=== PATIENT | male | born 1970 | race Two or more races ===

== ENCOUNTER 2022-12-01 09:59 | Inpatient (IN) | payer MEDICAID ==
[~2022-12-01] VITALS: Ht 175.3 cm; Wt 91.0 kg
[2022-12-01] MEDS ORDERED: IOHEXOL 300 MG/ML 100ML BOTTLE IJ ONE (10:25)
[2022-12-01] MEDS ORDERED: SODIUM CHLORIDE 0.9% 1,000 ML IV ONE ×2 (10:30)
[2022-12-01] MEDS ORDERED: cefTRIAXone 1GM/50ML D5W 50 ML IV ONE (10:30)
[2022-12-01] MEDS ORDERED: CLINDAMYCIN 600MG IV 50 ML IV ONE (10:30)
[2022-12-01 10:42] LABS: Basophils # (auto) 0.1 10 ^3/uL (0-0.2); Basophils % (auto) 1.1 % (0.0-2.0); Eosinophils # (auto) 0.1 10 ^3/uL (0-0.8); Eosinophils % (auto) 1.1 % (0.0-7.0); Hematocrit 45.8 % (41.0-53.0); Hemoglobin 15.5 g/dL (13.5-17.5); Lymphocytes # (auto) 2.8 10 ^3/uL (0.4-5.4); Lymphocytes % (auto) 35.1 % (10.0-50.0); Mean Corpuscular Hemoglobin 31.5 pg (28.0-32.0); Mean Corpuscular Hgb Conc. 33.8 g/dL (32.0-36.0); Mean Corpuscular Volume 93.2 fL (80.0-100.0); Monocytes # (auto) 0.5 10 ^3/uL (0-1.3); Monocytes % (auto) 6.8 % (0.0-12.0); Neutrophils # (auto) 4.5 10 ^3/uL (1.6-8.6); Neutrophils % (auto) 55.9 % (37.0-80.0); Nucleated Red Blood Cells % 0.1 %; Red Blood Cells 4.91 10^6/uL (4.5-5.90); Red Cell Distribution Width 13.5 % (11.8-14.3); White Blood Cell 8.1 10^3/uL (4.4-10.8)
[2022-12-01 10:53] LABS: INR 0.92 (0.9-1.15); Partial Thromboplastin Time 25.5 sec (24.6-33.4)
[2022-12-01 10:59] LABS: Calcium 8.9 mg/dL (8.5-10.1); Potassium 4.2 mmol/L (3.5-5.1)
[2022-12-01 11:03] LABS: BUN/Creatinine Ratio 10.9; Bilirubin, Total 0.5 mg/dL (0.2-1.0); Total Protein 7.4 g/dL (6.4-8.2)
[2022-12-01 13:49] LABS: Urine WBC None Seen /hpf (0 - 3)
[2022-12-01 14:07] LABS: Urine Bacteria NONE SEEN /hpf (None Seen); Urine Blood Negative /uL (Negative)
[2022-12-01] MEDS ORDERED: ACETAMINOPHEN 325 MG TAB PO PRN (14:30)
[2022-12-01] MEDS ORDERED: SODIUM CHLORIDE 0.9% 1,000 ML IV SCH (14:30)
[2022-12-01] MEDS ORDERED: VANCOMYCIN PER PHARMACY 0 MG IV SCH (14:45)
[2022-12-01] MEDS ORDERED: PANTOPRAZOLE 40 MG/10 ML VIAL INJ IV ONE ×2 (14:45→15:00)
[2022-12-01 14:57] LABS: Cholesterol 177 mg/dL (< 200); Triglycerides 89 mg/dL (< 150)
[2022-12-01 14:58] LABS: HDL Cholesterol 49 mg/dL (40-59); LDL Cholesterol 122 mg/dL (< 100)
[2022-12-01] MEDS ORDERED: [UNRECOGNIZED DRUG - CODE] (15:29)
[2022-12-01] MEDS ORDERED: LISI20TA28 PO (15:29)
[2022-12-01] MEDS ORDERED: CEPH500C PO (15:29)
[2022-12-01] MEDS ORDERED: VANCOMYCIN 1GM/250ML 250 ML IV ONE (15:30)
[2022-12-01] MEDS: SODIUM CHLORIDE 0.9% 1,000 ML IV SCH ×2 (15:53→21:26)
[2022-12-01 20:00] VITALS: BP 122/78
[2022-12-01] MEDS: ASCORBIC ACID 500 MG TAB PO SCH (21:25)
[2022-12-01] MEDS: CLINDAMYCIN 600MG IV 50 ML IV SCH (21:25)
[2022-12-01 22:00] VITALS: BP 133/88
[2022-12-01] MEDS: VANCOMYCIN 1GM/250ML 250 ML IV SCH (23:14)
[2022-12-02 05:00] VITALS: BP 126/86
[2022-12-02] MEDS: CLINDAMYCIN 600MG IV 50 ML IV SCH ×3 (05:17→21:39)
[2022-12-02 07:18] LABS: Basophils # (auto) 0.1 10 ^3/uL (0-0.2); Eosinophils # (auto) 0.2 10 ^3/uL (0-0.8); Eosinophils % (auto) 3.1 % (0.0-7.0); Hematocrit 44.5 % (41.0-53.0); Lymphocytes # (auto) 2.4 10 ^3/uL (0.4-5.4); Lymphocytes % (auto) 36.6 % (10.0-50.0); Mean Corpuscular Hemoglobin 31.2 pg (28.0-32.0); Mean Corpuscular Hgb Conc. 33.6 g/dL (32.0-36.0); Mean Corpuscular Volume 92.9 fL (80.0-100.0); Monocytes # (auto) 0.5 10 ^3/uL (0-1.3); Monocytes % (auto) 7.3 % (0.0-12.0); Neutrophils # (auto) 3.4 10 ^3/uL (1.6-8.6); Nucleated Red Blood Cells % 0.1 %; Red Blood Cells 4.79 10^6/uL (4.5-5.90); Red Cell Distribution Width 13.7 % (11.8-14.3); White Blood Cell 6.5 10^3/uL (4.4-10.8)
[2022-12-02 07:32] LABS: Calcium 8.5 mg/dL (8.5-10.1); Potassium 4.3 mmol/L (3.5-5.1)
[2022-12-02 07:37] LABS: Albumin 3.6 g/dL (3.4-5.0); BUN/Creatinine Ratio 8.8; Bilirubin, Total 1.2 mg/dL (0.2-1.0); Total Protein 6.6 g/dL (6.4-8.2)
[2022-12-02 08:00] VITALS: BP 123/89
[2022-12-02 09:00] VITALS: BP 123/89
[2022-12-02] MEDS: MULTIPLE VITAMIN TAB PO SCH (09:27)
[2022-12-02] MEDS: VANCOMYCIN 1GM/250ML 250 ML IV SCH ×3 (09:27→23:15)
[2022-12-02] MEDS: PANTOPRAZOLE 40 MG/10 ML VIAL INJ IV SCH (09:27)
[2022-12-02] MEDS: ZINC SULFATE 220mg CAP or TAB PO SCH (09:27)
[2022-12-02] MEDS: ASCORBIC ACID 500 MG TAB PO SCH ×2 (09:28→21:39)
[2022-12-02] MEDS: ENOXAPARIN SOD 40 MG/0.4 ML SYRINGE SC SCH (09:28)
[2022-12-02] MEDS: LISINOPRIL 20 MG TAB PO SCH (09:28)
[2022-12-02] MEDS ORDERED: PANTOPRAZOLE 40 MG/10 ML VIAL INJ IV SCH (10:00)
[2022-12-02 13:00] VITALS: BP 133/87
[2022-12-02] MEDS: SODIUM CHLORIDE 0.9% 1,000 ML IV SCH (15:02)
[2022-12-02 16:58] VITALS: BP 121/86
[2022-12-02 23:03] VITALS: BP 105/55
[2022-12-03 05:01] VITALS: BP 104/76
[2022-12-03] MEDS: CLINDAMYCIN 600MG IV 50 ML IV SCH (05:43)
[2022-12-03 06:45] LABS: Basophils # (auto) 0.1 10 ^3/uL (0-0.2); Basophils % (auto) 0.9 % (0.0-2.0); Eosinophils # (auto) 0.2 10 ^3/uL (0-0.8); Eosinophils % (auto) 2.5 % (0.0-7.0); Hematocrit 47.3 % (41.0-53.0); Lymphocytes % (auto) 33.8 % (10.0-50.0); Mean Corpuscular Hemoglobin 31.6 pg (28.0-32.0); Mean Corpuscular Hgb Conc. 33.9 g/dL (32.0-36.0); Monocytes # (auto) 0.7 10 ^3/uL (0-1.3); Monocytes % (auto) 7.4 % (0.0-12.0); Neutrophils # (auto) 4.9 10 ^3/uL (1.6-8.6); Neutrophils % (auto) 55.4 % (37.0-80.0); Nucleated Red Blood Cells % 0.2 %; Red Blood Cells 5.09 10^6/uL (4.5-5.90); Red Cell Distribution Width 13.2 % (11.8-14.3); White Blood Cell 8.9 10^3/uL (4.4-10.8)
[2022-12-03 06:55] LABS: BUN/Creatinine Ratio 12.7; Calcium 9.3 mg/dL (8.5-10.1)
[2022-12-03] MEDS: ENOXAPARIN SOD 40 MG/0.4 ML SYRINGE SC SCH (08:31)
[2022-12-03] MEDS: PANTOPRAZOLE 40 MG/10 ML VIAL INJ IV SCH (08:31)
[2022-12-03] MEDS: VANCOMYCIN 1GM/250ML 250 ML IV SCH (08:31)
[2022-12-03] MEDS: ASCORBIC ACID 500 MG TAB PO SCH ×2 (08:32→21:42)
[2022-12-03] MEDS: LISINOPRIL 20 MG TAB PO SCH (08:32)
[2022-12-03] MEDS: ZINC SULFATE 220mg CAP or TAB PO SCH (08:32)
[2022-12-03] MEDS: MULTIPLE VITAMIN TAB PO SCH (08:32)
[2022-12-03 08:53] VITALS: BP 126/86
[2022-12-03] MEDS ORDERED: PIPERACILLIN-TAZOB 3.375GM 100 ML IV ONE (09:30)
[2022-12-03 13:00] VITALS: BP 113/75
[2022-12-03 16:38] VITALS: BP 113/76
[2022-12-03] MEDS: PIPERACILLIN-TAZOB 3.375GM 100 ML IV SCH ×3 (16:56→23:48)
[2022-12-03] MEDS ORDERED: LACTULOSE 20Gm/30ML SOLN PO ONE (17:00)
[2022-12-03] MEDS ORDERED: DOCUSATE SOD 100 MG CAP PO ONE (17:00)
[2022-12-03] MEDS: DOCUSATE SOD 100 MG CAP PO SCH (21:42)
[2022-12-03 22:00] VITALS: BP 100/66
[2022-12-04 05:00] VITALS: BP 102/70
[2022-12-04] MEDS: PIPERACILLIN-TAZOB 3.375GM 100 ML IV SCH ×4 (05:26→23:46)
[2022-12-04 09:16] VITALS: BP 104/64
[2022-12-04] MEDS: PANTOPRAZOLE 40 MG/10 ML VIAL INJ IV SCH (09:18)
[2022-12-04] MEDS: LISINOPRIL 20 MG TAB PO SCH (09:18)
[2022-12-04] MEDS: DOCUSATE SOD 100 MG CAP PO SCH ×2 (09:18→22:00)
[2022-12-04] MEDS: MULTIPLE VITAMIN TAB PO SCH (09:18)
[2022-12-04] MEDS: ZINC SULFATE 220mg CAP or TAB PO SCH (09:18)
[2022-12-04] MEDS: ASCORBIC ACID 500 MG TAB PO SCH ×2 (09:18→21:29)
[2022-12-04 12:45] VITALS: BP 122/74
[2022-12-04 16:50] VITALS: BP 122/68
[2022-12-04] MEDS ORDERED: VANCOMYCIN 1GM/250ML 250 ML IV STA (20:11)
[2022-12-04 22:14] VITALS: BP 118/71
[2022-12-05 05:00] VITALS: BP 96/67
[2022-12-05] MEDS: PIPERACILLIN-TAZOB 3.375GM 100 ML IV SCH ×3 (05:30→18:00)
[2022-12-05 07:12] LABS: Basophils # (auto) 0.1 10 ^3/uL (0-0.2); Eosinophils # (auto) 0.2 10 ^3/uL (0-0.8); Eosinophils % (auto) 2.8 % (0.0-7.0); Hematocrit 46.6 % (41.0-53.0); Hemoglobin 15.9 g/dL (13.5-17.5); Lymphocytes # (auto) 2.4 10 ^3/uL (0.4-5.4); Lymphocytes % (auto) 29.8 % (10.0-50.0); Mean Corpuscular Hemoglobin 31.6 pg (28.0-32.0); Monocytes # (auto) 0.7 10 ^3/uL (0-1.3); Monocytes % (auto) 8.9 % (0.0-12.0); Neutrophils # (auto) 4.6 10 ^3/uL (1.6-8.6); Neutrophils % (auto) 57.5 % (37.0-80.0); Red Blood Cells 5.02 10^6/uL (4.5-5.90); Red Cell Distribution Width 13.5 % (11.8-14.3)
[2022-12-05 08:57] VITALS: BP 109/79
[2022-12-05] MEDS ORDERED: VANCOMYCIN PER PHARMACY 0 MG IV SCH (09:00)
[2022-12-05] MEDS: LISINOPRIL 20 MG TAB PO SCH (10:00)
[2022-12-05] MEDS: ASCORBIC ACID 500 MG TAB PO SCH ×2 (10:00→21:08)
[2022-12-05] MEDS: MULTIPLE VITAMIN TAB PO SCH (10:00)
[2022-12-05] MEDS ORDERED: VANCOMYCIN 1GM/250ML 250 ML IV SCH (10:00)
[2022-12-05] MEDS: DOCUSATE SOD 100 MG CAP PO SCH ×2 (10:00→21:08)
[2022-12-05] MEDS: PANTOPRAZOLE 40 MG/10 ML VIAL INJ IV SCH (10:33)
[2022-12-05] MEDS: ZINC SULFATE 220mg CAP or TAB PO SCH (10:34)
[2022-12-05 12:43] VITALS: BP 135/81
[2022-12-05 17:30] VITALS: BP 123/88
[2022-12-05 22:00] VITALS: BP 122/79
[2022-12-06] MEDS: PIPERACILLIN-TAZOB 3.375GM 100 ML IV SCH ×4 (00:15→18:00)
[2022-12-06 05:00] VITALS: BP 103/71
[2022-12-06 06:44] LABS: Potassium 4.4 mmol/L (3.5-5.1)
[2022-12-06 06:47] LABS: Basophils # (auto) 0.1 10 ^3/uL (0-0.2); Basophils % (auto) 0.6 % (0.0-2.0); Eosinophils # (auto) 0.2 10 ^3/uL (0-0.8); Eosinophils % (auto) 2.1 % (0.0-7.0); Hematocrit 48.4 % (41.0-53.0); Lymphocytes # (auto) 3.1 10 ^3/uL (0.4-5.4); Lymphocytes % (auto) 34.4 % (10.0-50.0); Mean Corpuscular Hgb Conc. 33.1 g/dL (32.0-36.0); Mean Corpuscular Volume 93.7 fL (80.0-100.0); Monocytes # (auto) 0.9 10 ^3/uL (0-1.3); Monocytes % (auto) 9.6 % (0.0-12.0); Neutrophils # (auto) 4.7 10 ^3/uL (1.6-8.6); Neutrophils % (auto) 53.3 % (37.0-80.0); Nucleated Red Blood Cells % 0.2 %; Red Blood Cells 5.16 10^6/uL (4.5-5.90); Red Cell Distribution Width 13.4 % (11.8-14.3); White Blood Cell 8.9 10^3/uL (4.4-10.8)
[2022-12-06 06:49] LABS: BUN/Creatinine Ratio 11.2
[2022-12-06 06:50] LABS: Calcium 9.1 mg/dL (8.5-10.1)
[2022-12-06] MEDS ORDERED: SUCCINYLCHOLINE CHLORIDE 20 MG/ML 10ML VIAL IV ONE (07:04)
[2022-12-06] MEDS ORDERED: ROCURONIUM 10MG/ML 10ML VIAL IV ONE (07:04)
[2022-12-06] MEDS ORDERED: ONDANSETRON HCL 4 MG/2 ML VIAL ONE (07:07)
[2022-12-06] MEDS ORDERED: fentaNYL CITRATE 100 MCG/2 ML VL ONE (07:07)
[2022-12-06] MEDS ORDERED: MIDAZOLAM HCL 2MG/2ML 2ml VIAL (1mg/ml) ONE (07:07)
[2022-12-06] MEDS ORDERED: SODIUM CHLORIDE LOCK 10 ML ONE (07:07)
[2022-12-06] MEDS ORDERED: PROPOFOL 10 MG/ML 20 ML IV ONE (07:07)
[2022-12-06] MEDS ORDERED: MORPHINE SULFATE INJ 2 MG/ml SYRG IV PRN (07:30)
[2022-12-06] MEDS ORDERED: HYDROmorphone HCL 2 MG/ML VL/or syr IV PRN ×2 (07:30)
[2022-12-06] MEDS ORDERED: METOCLOPRAMIDE HCL 5MG/ml INJ 2ml VIAL IV PRN (07:30)
[2022-12-06] MEDS ORDERED: LIDOCAINE W/ EPINEPHRINE 1% 20ML VIAL ONE (07:32)
[2022-12-06] MEDS ORDERED: LIDOCAINE 2% JELLY 11ml (GLYDO) ONE (07:32)
[2022-12-06] MEDS ORDERED: ceFAZolin 1GM VL ONE (07:45)
[2022-12-06 09:59] VITALS: BP 122/85
[2022-12-06] MEDS: DOCUSATE SOD 100 MG CAP PO SCH ×2 (10:00→22:00)
[2022-12-06] MEDS: ZINC SULFATE 220mg CAP or TAB PO SCH (10:04)
[2022-12-06] MEDS: PANTOPRAZOLE 40 MG/10 ML VIAL INJ IV SCH (10:04)
[2022-12-06] MEDS: MULTIPLE VITAMIN TAB PO SCH (10:04)
[2022-12-06] MEDS: ASCORBIC ACID 500 MG TAB PO SCH ×2 (10:04→22:00)
[2022-12-06] MEDS: LISINOPRIL 20 MG TAB PO SCH (10:05)
[2022-12-06 12:48] VITALS: BP 136/83
[2022-12-06 17:41] VITALS: BP 122/82
[2022-12-07 00:30] VITALS: BP 128/85
[2022-12-07 05:33] VITALS: BP 130/83
[2022-12-07] MEDS: PIPERACILLIN-TAZOB 3.375GM 100 ML IV SCH ×5 (06:00→23:57)
[2022-12-07 07:55] VITALS: BP 121/75
[2022-12-07] MEDS: ASCORBIC ACID 500 MG TAB PO SCH ×2 (09:40→22:47)
[2022-12-07] MEDS: DOCUSATE SOD 100 MG CAP PO SCH ×2 (09:40→22:00)
[2022-12-07] MEDS: PANTOPRAZOLE 40 MG/10 ML VIAL INJ IV SCH (09:40)
[2022-12-07] MEDS: LISINOPRIL 20 MG TAB PO SCH (09:41)
[2022-12-07] MEDS: ZINC SULFATE 220mg CAP or TAB PO SCH (09:41)
[2022-12-07] MEDS: MULTIPLE VITAMIN TAB PO SCH (09:41)
[2022-12-07 12:50] VITALS: BP 110/77
[2022-12-07 16:35] VITALS: BP 110/70
[2022-12-07 22:00] VITALS: BP 123/81
[2022-12-08 05:00] VITALS: BP 106/75
[2022-12-08] MEDS: PIPERACILLIN-TAZOB 3.375GM 100 ML IV SCH ×4 (06:26→23:57)
[2022-12-08] MEDS: PANTOPRAZOLE 40 MG/10 ML VIAL INJ IV SCH (08:29)
[2022-12-08] MEDS: ZINC SULFATE 220mg CAP or TAB PO SCH (08:30)
[2022-12-08] MEDS: DOCUSATE SOD 100 MG CAP PO SCH ×2 (08:30→22:00)
[2022-12-08] MEDS: ASCORBIC ACID 500 MG TAB PO SCH ×2 (08:30→22:00)
[2022-12-08] MEDS: LISINOPRIL 20 MG TAB PO SCH (08:31)
[2022-12-08] MEDS: MULTIPLE VITAMIN TAB PO SCH (08:31)
[2022-12-08 08:45] VITALS: BP 117/78
[2022-12-08 12:40] VITALS: BP 101/69
[2022-12-08 16:45] VITALS: BP 105/71
[2022-12-08 22:00] VITALS: BP 113/73
[2022-12-09 05:00] VITALS: BP 110/72
[2022-12-09] MEDS: PIPERACILLIN-TAZOB 3.375GM 100 ML IV SCH ×2 (06:02→14:55)
[2022-12-09 08:00] VITALS: BP 116/79
[2022-12-09] MEDS: ASCORBIC ACID 500 MG TAB PO SCH ×2 (09:35→22:00)
[2022-12-09] MEDS: PANTOPRAZOLE 40 MG/10 ML VIAL INJ IV SCH (09:35)
[2022-12-09] MEDS: MULTIPLE VITAMIN TAB PO SCH (09:35)
[2022-12-09] MEDS: LISINOPRIL 20 MG TAB PO SCH (09:36)
[2022-12-09] MEDS: DOCUSATE SOD 100 MG CAP PO SCH ×2 (09:39→22:00)
[2022-12-09] MEDS: ZINC SULFATE 220mg CAP or TAB PO SCH (10:56)
[2022-12-09 12:33] VITALS: BP 122/77
[2022-12-09 17:00] VITALS: BP 140/84
[2022-12-09] MEDS ORDERED: CIPR500T4 PO (21:13)
[2022-12-10] MEDS ORDERED: CEFTRIAXONE SODIUM 2 GM in D5W 5% 50 ML IV SCH (10:00)
== END 2022-12-09 22:47 | disposition home or self-care (01) | DRG 351 ==
LOC: ER 10:02 → OVERFLOW 14:37 → WEST WING 19:50
PROVIDERS: ADMIT Nurse Practitioner Family; ATTEND Student in an Organized Health Care Education/Training Program
PROC: 0Y9B3ZZ Drainage of Left Lower Extremity, Percutaneous Approach (ICD-10-PCS; principal; 2022-12-02)
PROC: 0Y9B0ZZ Drainage of Left Lower Extremity, Open Approach (ICD-10-PCS; 2022-12-06)
PROC: 8E0YXY8 Suture Removal from Lower Extremity (ICD-10-PCS; 2022-12-06)
DX: S71.142A Puncture wound with foreign body, left thigh, initial encounter (principal); L02.416 Cutaneous abscess of left lower limb; B95.2 Enterococcus as the cause of diseases classified elsewhere; E11.9 Type 2 diabetes mellitus without complications; E66.01 Morbid (severe) obesity due to excess calories; Z20.822 Contact with and (suspected) exposure to COVID-19; X58.XXXA Exposure to other specified factors, initial encounter; L08.9 Local infection of the skin and subcutaneous tissue, unspecified; L03.116 Cellulitis of left lower limb; Z79.899 Other long term (current) drug therapy; Y93.89 Activity, other specified; Y92.89 Other specified places as the place of occurrence of the external cause; Y99.8 Other external cause status; Z68.29 Body mass index [BMI] 29.0-29.9, adult
CPT/HCPCS: 36415; 73700; 73701; 75989; 80048; 80053; 80061; 80202; 81001; 83036; 83605; 84132; 84443; 85025; 85610; 85730; 87040; 87070; 87075; 87077; 87186; 87205; 87426; 89051; 96365; 96367; C9113; G0378; J0330; J0690; J0696; J2250; J2405; J2543; J2704; J3490